=== PATIENT | male | born 1960 | race African-American/Black ===

== ENCOUNTER 2018-04-14 11:35 | Emergency (ER) | payer MEDICAID, OTHER ==
[~2018-04-14] VITALS: Ht 180.3 cm; Wt 57.0 kg
[2018-04-14 12:03] VITALS: BP 107/68
== END 2018-04-14 15:54 | disposition home or self-care (01) ==
LOC: ER 11:35
DX: S51.011A Laceration without foreign body of right elbow, initial encounter (principal); F12.10 Cannabis abuse, uncomplicated; F17.200 Nicotine dependence, unspecified, uncomplicated; Z98.890 Other specified postprocedural states; W01.110A Fall on same level from slipping, tripping and stumbling with subsequent striking against sharp glass, initial encounter; Y93.89 Activity, other specified; Y92.89 Other specified places as the place of occurrence of the external cause
CPT/HCPCS: 99282; Z7610

== ENCOUNTER 2019-01-10 18:56 | Emergency (ER) | payer OTHER ==
[~2019-01-10] VITALS: Ht 180.3 cm; Wt 59.0 kg
[2019-01-10] MEDS ORDERED: DOCUSATE SODIUM SUGAR FREE 100MG/10ML UDC NG ONE (20:45)
[2019-01-10 23:42] VITALS: BP 119/77
== END 2019-01-10 23:45 | disposition home or self-care (01) ==
LOC: ER 18:56
DX: H61.22 Impacted cerumen, left ear (principal); F17.200 Nicotine dependence, unspecified, uncomplicated; F12.10 Cannabis abuse, uncomplicated; Z88.5 Allergy status to narcotic agent
CPT/HCPCS: 69209; 99282